=== PATIENT | female | born 1935 | race Caucasian/White ===

== ENCOUNTER 2020-07-16 14:08 | Emergency (ER) | payer MEDICARE, OTHER ==
[2020-07-16 14:24] VITALS: PULSE 82
--- NOTE | 2020-07-16 14:46 | EDM.PDOC ---
ED HPI GENERAL MEDICAL PROBLEM - General Chief Complaint: Gastrointestinal Problem Stated Complaint: BLOOD IN STOOL Time Seen by Provider: 07/16/20 14:20 Source of Information: Reports: Patient, RN Notes Reviewed - History of Present Illness INITIAL COMMENTS - FREE TEXT/NARRATIVE: 85 yr old female who noticed blood in the toilet after having a nl BM about an hour ago. No clots but enough blood to color the water pink. On Coumadin, aspirin and plavix having just had heart stents placed 4 days ago. - Related Data Allergies Allergy/AdvReac Type Severity Reaction Status Date / Time codeine Allergy Itching Verified 07/16/20 14:24 Home Meds: Home Meds ALPRAZolam [Alprazolam Odt] 0.25 mg PO Q6H PRN 04/01/15 [History] Aspirin 81 mg PO DAILY 04/01/15 [History] Diclofenac Sodium/Misoprostol [Arthrotec 75 mg-200 Mcg Tab] 1 tab PO BID 04/01/15 [History] Furosemide 40 mg PO DAILY 04/01/15 [History] Omeprazole 40 mg PO DAILY 04/01/15 [History] Simvastatin [Zocor] 40 mg PO DAILY 04/01/15 [History] traMADol [Ultram] 50 mg PO BID 04/01/15 [History] traZODone 50 mg PO DAILY 04/01/15 [History] Past Medical History Cardiovascular History: Reports: Stents Other [employer] History: hysterectomy and a tubual ligation - Infectious Disease History Infectious Disease History: Reports: Chicken Pox, Measles, Mumps, Shingles - Past Surgical History HEENT Surgical History: Reports: Cataract Surgery Female Surgical History: Reports: Hysterectomy Other Musculoskeletal Surgeries/Procedures:: previous broken right femur with rods and screws placed Social & Family History - Tobacco Use Tobacco Use Status *Q: Never Tobacco User - Living Situation & Occupation Living situation: Reports: Single, Alone ED ROS GENERAL - Review of Systems Review Of Systems: See Below Constitutional: Denies: Fever, Chills, Diaphoresis HEENT: Reports: No Symptoms Respiratory: Denies: Shortness of Breath, Hemoptysis GI/Abdominal: Reports: Hematochezia. Denies: Abdominal Pain, Nausea, Vomiting : Reports: No Symptoms Musculoskeletal: Reports: No Symptoms Skin: Reports: Bruising (occasional mild bruising) Neurological: Reports: No Symptoms ED EXAM, GI/ABD - Physical Exam Exam: See Below General Appearance: Alert, No Apparent Distress Head: Atraumatic. No: Facial Swelling Neck: Supple Respiratory/Chest: No Respiratory Distress, Lungs Clear, Normal Breath Sounds Cardiovascular: Regular Rate, Rhythm GI/Abdominal Exam: Soft, Non-Tender Extremities: Normal Inspection. No: Pedal Edema, Leg Pain Neurological: Alert, Oriented, No Motor/Sensory Deficits Skin Exam: Warm, Dry, Ecchymosis (a few areas of mild bruising bilat forearms) #1 Interpretation Rhythm: A-Fib Rate (Beats/Min): 73 [place]: Normal P-Wave: Absent QRS: Normal ST-T: Normal Course - Vital Signs Last Recorded V/S: Last Vital Signs Temp 97.5 F 07/16/20 14:21 Pulse 82 07/16/20 14:21 Resp 18 07/16/20 14:21 BP Pulse Ox 97 07/16/20 14:21 - Orders/Labs/Meds Orders: Active Orders 24 hr Category Date Time Status EKG 12 Lead [EKG Documentation Completion] [RC] STAT Care 07/16/20 14:39 Active Labs: Laboratory Tests 07/16/20 07/16/20 07/16/20 Range/Units 14:56 14:56 14:56 WBC 5.05 (3.98-10.04) K/mm3 RBC 4.31 (3.98-5.22) M/mm3 Hgb 13.2 (11.2-15.7) gm/dl Hct 41.3 (34.1-44.9) % MCV 95.8 H (79.4-94.8) fl MCH 30.6 (25.6-32.2) pg MCHC 32.0 L (32.2-35.5) g/dl RDW Std Deviation 46.8 H (36.4-46.3) fL Plt Count 134 L (182-369) K/mm3 MPV 10.7 (9.4-12.3) fl Neut % (Auto) 54.6 (34.0-71.1) % Lymph % (Auto) 31.5 (19.3-51.7) % [place] % (Auto) 11.7 (4.7-12.5) % Eos % (Auto) 1.8 (0.7-5.8) Baso % (Auto) 0.2 (0.1-1.2) % Neut # (Auto) 2.76 (1.56-6.13) K/mm3 Lymph # (Auto) 1.59 (1.18-3.74) K/mm3 [place] # (Auto) 0.59 H (0.24-0.36) K/mm3 Eos # (Auto) 0.09 (0.04-0.36) K/mm3 Baso # (Auto) 0.01 (0.01-0.08) K/mm3 PT 14.6 H (9.7-12.0) SECONDS INR 1.37 Sodium 139 (136-145) mEq/L Potassium 3.6 (3.5-5.1) mEq/L Chloride 100 (98-107) mEq/L Carbon Dioxide 34 H (21-32) mEq/L Anion Gap 8.6 (5-15) BUN 15 (7-18) mg/dL Creatinine 0.7 (0.55-1.02) mg/dL Est Cr Clr Drug Dosing 47.72 mL/min Estimated GFR (MDRD) > 60 (>60) mL/min BUN/Creatinine Ratio 21.4 H (14-18) Glucose 107 (83-115) mg/dL Calcium 9.0 (8.5-10.1) mg/dL Total Bilirubin 0.6 (0.2-1.0) mg/dL AST 28 (15-37) U/L ALT 42 (14-59) U/L Alkaline Phosphatase 37 L (46-116) U/L Total Protein 6.8 (6.4-8.2) g/dl Albumin 3.5 (3.4-5.0) g/dl Globulin 3.3 gm/dL Albumin/Globulin Ratio 1.1 (1-2) - Re-Assessments/Exams Free Text/Narrative Re-Assessment/Exam: 07/16/20 15:52 Hgb 13.4, INR 1.36, remainder of labs normal. Discharge instr. as documented. Departure - Departure Time of Disposition: 15:46 Disposition: Home, Self-Care 01 Condition: Fair Clinical Impression: Rectal hemorrhage - Discharge Information Referrals: Jane Velasquez MD [Primary Care Provider] - Forms: ED Department Discharge Additional Instructions: I do advise taking a stool softener daily, high fiber diet, drink plenty of water to avoid constipation if you are not already doing that. Continue current meds for now. Return to ED as needed if symptoms worsening in any way. Sepsis Event Note (ED) - Evaluation Sepsis Screening Result: No Definite Risk - Focused Exam Vital Signs: Vital Signs Temp Pulse Resp Pulse Ox 07/16/20 14:21 97.5 F 82 18 97 - My Orders Last 24 Hours: My Active Orders 07/16/20 14:39 EKG 12 Lead [EKG Documentation Completion] [RC] STAT - Assessment/Plan Last 24 Hours: My Active Orders 07/16/20 14:39 EKG 12 Lead [EKG Documentation Completion] [RC] STAT
== END 2020-07-16 16:06 | disposition home or self-care (01) ==
LOC: JD.ED 14:08
DX: K62.5 Hemorrhage of anus and rectum (principal); Z88.5 Allergy status to narcotic agent; Z79.82 Long term (current) use of aspirin; Z79.899 Other long term (current) drug therapy
CPT/HCPCS: 36415; 80053; 85025; 85610; 93005; 93010; 99282; 99283-25

== ENCOUNTER 2021-10-25 16:43 | Emergency (ER) | payer MEDICARE, OTHER ==
[2021-10-25 17:04] VITALS: BP 126/72; PULSE 86
[2021-10-25] MEDS ORDERED: Sodium Chloride 0.9% 10 ML Syringe FLUSH PRN (17:15)
== END 2021-10-25 18:45 | disposition home or self-care (01) ==
LOC: JD.ED 16:43
DX: M15.0 Primary generalized (osteo)arthritis (principal); M47.812 Spondylosis without myelopathy or radiculopathy, cervical region; Z88.5 Allergy status to narcotic agent; Z79.82 Long term (current) use of aspirin; Z79.01 Long term (current) use of anticoagulants; Z79.02 Long term (current) use of antithrombotics/antiplatelets; Z79.899 Other long term (current) drug therapy
CPT/HCPCS: 36415; 71045; 71045-26; 72125; 72125-26; 80053; 84484; 85025; 93005; 99284-25

== ENCOUNTER 2021-12-30 10:04 | Emergency (ER) | payer OTHER ==
[2021-12-30 10:16] VITALS: BP 128/64; PULSE 93
== END 2021-12-30 11:53 | disposition home or self-care (01) ==
LOC: JD.ED 10:04
DX: M79.2 Neuralgia and neuritis, unspecified (principal); I48.91 Unspecified atrial fibrillation; Z95.5 Presence of coronary angioplasty implant and graft; Z79.82 Long term (current) use of aspirin; Z88.5 Allergy status to narcotic agent; Z79.899 Other long term (current) drug therapy; Z79.02 Long term (current) use of antithrombotics/antiplatelets; Z79.01 Long term (current) use of anticoagulants
CPT/HCPCS: 73630-26-RT; 73630-RT; 99283; 99283-25